=== PATIENT | male | born 1935 | race Caucasian/White ===

== ENCOUNTER 2017-01-03 20:43 | Observation (INO) | payer MEDICARE ==
[~2017-01-03] VITALS: Ht 177.8 cm; Wt 91.7 kg
[2017-01-03 21:11] LABS: HEMATOCRIT 42.1 % (42.0-52.0); HEMOGLOBIN 14.2 g/dl (13.5-18.0); MEAN CELL VOLUME 91 fl (80.0-100.0); MEAN CORPUSCULAR HEMOGLOBIN 31 pg (27.0-31.0); MEAN CORPUSCULAR HGB CONC 34 g/dl (33.0-37.0); MEAN PLATELET VOLUME 10.1 fl (7.4-10.4); PLATELET COUNT 251 K/mm3 (130-400); RED BLOOD COUNT 4.61 M/mm3 (4.20-5.60); REDCELL DISTRIBUTION WIDTH-CV 13.8 % (11.5-14.5); WHITE BLOOD COUNT 6.4 K/mm3 (4.8-10.8)
[2017-01-03] MEDS ORDERED: MILK OF MA400 MG/52 (21:17)
[2017-01-03] MEDS ORDERED: DULCOLAX S10 MG/SUPP RC (21:18)
[2017-01-03] MEDS ORDERED: ALMACONE 360 M360 ML PO (21:18)
[2017-01-03 21:20] LABS: ADJUSTED CALCIUM 9.2 mg/dL (8.4-10.2); ALANINE AMINOTRANSFERASE 16 U/L (21-72); ALBUMIN 3.9 gm/dL (3.5-5.0); ALKALINE PHOSPHATASE 56 U/L (50-136); ANION GAP 11 mmol/L (7-16); BLOOD UREA NITROGEN 20 mg/dL (9-20); CALCIUM 9.1 mg/dL (8.4-10.2); CARBON DIOXIDE 27 mmol/L (22-30); CHLORIDE 100 mmol/L (98-107); CREATININE, serum 0.81 mg/dL (0.66-1.25); GLUCOSE 106 mg/dL (74-106); LIPASE 59 U/L (23-300); POTASSIUM 3.9 mmol/L (3.4-5.0); SODIUM 138 mmol/L (137-145); TOTAL PROTEIN 7.2 gm/dL (6.4-8.2)
[2017-01-03] MEDS ORDERED: TYLENOL SU650 MG/SUP RC (21:20)
[2017-01-03] MEDS ORDERED: TYLENOL 325MG325 MG PO (21:20)
[2017-01-03 21:21] LABS: ADD PATHOLOGY DIFF REVIEW NO
[2017-01-03] MEDS ORDERED: NORCO 325 MG-7.1 TAB PO ×2 (21:21→22:48)
[2017-01-03] MEDS ORDERED: IMODIUM 2MG CAPS2 MG PO (21:21)
[2017-01-03] MEDS ORDERED: NEURONTIN800 MG/TAB PO (21:23)
[2017-01-03] MEDS ORDERED: RYTARY1 CER PO (21:24)
[2017-01-03] MEDS ORDERED: SINEMET 25/101 UDTAB PO (21:26)
[2017-01-03 21:32] LABS: B-TYPE NATRIURETIC PEPTIDE 472 pg/mL (0-450); TROPONIN-I < 0.012 ng/mL (0.000-0.034)
[2017-01-03 21:33] LABS: BASOPHIL 1 % (0-2); EOSINOPHIL 6 % (0-4); NEUTROPHILS 64 % (42.0-75.2); POIKILOCYTOSIS 1+; TOTAL CELLS COUNTED 100
[2017-01-03 21:34] LABS: ANISOCYTOSIS 1+
[2017-01-03] MEDS ORDERED: PROAMATINE2.5 MG PO ×2 (22:04→22:46)
[2017-01-03] MEDS ORDERED: ARICEPT10 MG PO (22:04)
[2017-01-03] MEDS ORDERED: FLORINEF ACETA0.1 MG PO (22:04)
[2017-01-03] MEDS ORDERED: FLOMAX 0.40.4 MG/CAP PO (22:05)
[2017-01-03] MEDS ORDERED: NATURE'S BLEND100 M2 PO (22:05)
[2017-01-03] MEDS ORDERED: VITAMIN B-1000 MCG/T PO (22:06)
[2017-01-03] MEDS ORDERED: ASPIRIN 32325 MG/TAB PO (22:47)
[2017-01-03] MEDS ORDERED: MIRALAX PA17 GM/Dose PO (22:47)
[2017-01-03] MEDS ORDERED: PEPCID40 MG PO (22:48)
[2017-01-03] MEDS ORDERED: SEROQUEL 2525 MG/TAB PO (22:49)
[2017-01-03] MEDS ORDERED: CIPRO 500MG TA500 MG PO (22:49)
[2017-01-03] MEDS ORDERED: AMBIEN 10MG10 MG PO (22:50)
[2017-01-03 23:56] VITALS: BP 169/85; PULSE 66; TEMP 97.9
[2017-01-04] VITALS (12 sets, daily range): BP systolic 82–193; BP diastolic 49–93; PULSE 63–87; TEMP 97.2–99
[2017-01-04] MEDS ORDERED: ARTIFICIAL TEAR15 M7 OP (00:23)
[2017-01-05 00:15] VITALS: BP 157/95; PULSE 53; TEMP 98.2
[2017-01-05 03:39] VITALS: BP 161/84; PULSE 69; TEMP 98.3
[2017-01-05 07:24] VITALS: BP 192/67; PULSE 63; TEMP 98.7
[2017-01-05] MEDS ORDERED: TOPROL XL 25MG25 MG PO (09:06)
[2017-01-05] MEDS ORDERED: ZESTRIL 10MG10 MG PO (09:06)
[2017-01-05 11:09] VITALS: BP 98/48; PULSE 57; TEMP 98.6
[2017-01-05 12:55] VITALS: BP 98/48; PULSE 57; TEMP 98.6
[2017-02-15] MEDS ORDERED: CIPRO 500MG TA500 MG PO (11:08)
[2017-02-15] MEDS ORDERED: COLACE 100100 MG/CAP PO (11:09)
[2017-02-15] MEDS ORDERED: SEROQUEL 2525 MG/TAB PO (11:16)
[2017-02-15] MEDS ORDERED: RYTARY1 CER PO ×2 (11:17→11:18)
[2017-02-15] MEDS ORDERED: FLOMAX 0.40.4 MG/CAP PO (11:18)
[2017-02-15] MEDS ORDERED: NATURE'S BLEND100 M2 PO (11:19)
[2017-02-15] MEDS ORDERED: NORCO 325 MG-7.1 TAB PO (12:31)
[2017-02-15] MEDS ORDERED: ALMACONE 360 M360 ML PO (12:35)
[2017-02-18] MEDS ORDERED: TRILEPTAL 300M300 MG PO (10:04)
[2017-02-18] MEDS ORDERED: SINEMET 25/101 UDTAB PO (10:05)
== END 2017-01-05 14:30 ==
LOC: COL.ER 20:43 → MEDICAL 22:33
PROVIDERS: Emergency Medicine
DX: R07.9 Chest pain, unspecified (principal); I16.0 Hypertensive urgency; R10.11 Right upper quadrant pain; E11.9 Type 2 diabetes mellitus without complications
CPT/HCPCS: 99233-AI; 99239; A9502; G0378; J1650; J2270; J2785

== ENCOUNTER → 2017-01-08 | Outpatient (CLI) | payer MEDICARE ==
[~2017-01-08] MED LIST: ALMACONE 360 M360 ML PO; AMBIEN 10MG10 MG PO; ARICEPT10 MG PO; ARTIFICIAL TEAR15 M7 OP; ASPIRIN 32325 MG/TAB PO; CIPRO 500MG TA500 MG PO; COLACE 100100 MG/CAP PO; DULCOLAX S10 MG/SUPP RC; FLOMAX 0.40.4 MG/CAP PO; FLORINEF ACETA0.1 MG PO; IMODIUM 2MG CAPS2 MG PO; MILK OF MA400 MG/52; MIRALAX PA17 GM/Dose PO; MYCOSTATIN100000 U/1 TP; NATURE'S BLEND100 M2 PO; NEURONTIN800 MG/TAB PO; NORCO 325 MG-7.1 TAB PO; PEPCID40 MG PO; PROAMATINE2.5 MG PO; RYTARY1 CER PO; SEROQUEL 2525 MG/TAB PO; SINEMET 25/101 UDTAB PO; TOPROL XL 25MG25 MG PO; TRILEPTAL 300M300 MG PO; TYLENOL 325MG325 MG PO; TYLENOL SU650 MG/SUP RC; VITAMIN B-1000 MCG/T PO; ZESTRIL 10MG10 MG PO
[2017-01-08 15:21] LABS: BASO % 0.6 % (0.0-2.0); EOS # 0.1 (0.0-0.7); EOS % 1.4 % (0-4.0); GRAN # 5.1 (1.4-6.5); GRAN % 72.9 % (42.2-75.2); HEMATOCRIT 42.1 % (42.0-52.0); HEMOGLOBIN 13.8 g/dl (13.5-18.0); LYMPH # 1.1 (1.2-3.4); LYMPH % 15.5 % (20.0-51.0); MEAN CELL VOLUME 95 fl (80.0-100.0); MEAN CORPUSCULAR HEMOGLOBIN 31 pg (27.0-31.0); MEAN CORPUSCULAR HGB CONC 33 g/dl (33.0-37.0); MEAN PLATELET VOLUME 11.5 fl (7.4-10.4); MONO # 0.6 (0.1-0.6); MONO % 9.2 % (1.7-9.3); PLATELET COUNT 253 K/mm3 (130-400); RED BLOOD COUNT 4.45 M/mm3 (4.20-5.60); REDCELL DISTRIBUTION WIDTH-CV 13.9 % (11.5-14.5)
[2017-01-08 15:34] LABS: PH 6 (5-8); SQUAMOUS EPITHELIAL 0-2 /hpf; URINE APPEARANCE Clear; URINE BACTERIA None Seen /hpf; URINE BILIRUBIN Negative (NEGATIVE); URINE BLOOD Negative (NEGATIVE); URINE COLOR Yellow; URINE GLUCOSE Negative (NEGATIVE); URINE KETONE Trace (NEGATIVE); URINE RBC 0-2 /hpf; URINE UROBILINOGEN Negative (NEGATIVE); URINE WBC 0-2 /hpf
[2017-01-08 15:44] LABS: ADJUSTED CALCIUM 9.6 mg/dL (8.4-10.2); ALANINE AMINOTRANSFERASE 15 U/L (21-72); ALBUMIN 3.7 gm/dL (3.5-5.0); ALKALINE PHOSPHATASE 49 U/L (50-136); ANION GAP 10 mmol/L (7-16); BILIRUBIN,TOTAL 1.4 mg/dL (0.0-1.0); BLOOD UREA NITROGEN 17 mg/dL (9-20); CALCIUM 9.4 mg/dL (8.4-10.2); CARBON DIOXIDE 28 mmol/L (22-30); CHLORIDE 101 mmol/L (98-107); CREATININE, serum 0.86 mg/dL (0.66-1.25); GLUCOSE 95 mg/dL (74-106); POTASSIUM 4.1 mmol/L (3.4-5.0); SODIUM 138 mmol/L (137-145); TOTAL PROTEIN 7.1 gm/dL (6.4-8.2)
[2017-01-08 15:55] LABS: TROPONIN-I < 0.012 ng/mL (0.000-0.034)
== END ==
LOC: ZCOL.LAB 14:59
PROVIDERS: Internal Medicine
DX: R41.82 Altered mental status, unspecified (principal); R07.9 Chest pain, unspecified

== ENCOUNTER 2017-01-09 02:36 | Emergency (ER) | payer MEDICARE ==
[~2017-01-09] VITALS: Ht 177.8 cm; Wt 90.9 kg
[~2017-01-09 02:36] MED LIST changes: -COLACE 100100 MG/CAP PO; -MYCOSTATIN100000 U/1 TP; -TRILEPTAL 300M300 MG PO
[2017-01-09 02:41] VITALS: TEMP 98.5
[2017-01-09] MEDS ORDERED: MYCOSTATIN100000 U/1 TP (03:15)
[2017-01-09 03:34] LABS: BASO # 0.1 (0.0-0.2); BASO % 0.6 % (0.0-2.0); EOS # 0.1 (0.0-0.7); EOS % 1.2 % (0-4.0); GRAN # 8.3 (1.4-6.5); GRAN % 79.3 % (42.2-75.2); HEMATOCRIT 41.9 % (42.0-52.0); HEMOGLOBIN 14.1 g/dl (13.5-18.0); LYMPH # 1.2 (1.2-3.4); LYMPH % 11.2 % (20.0-51.0); MEAN CELL VOLUME 92 fl (80.0-100.0); MEAN CORPUSCULAR HEMOGLOBIN 31 pg (27.0-31.0); MEAN CORPUSCULAR HGB CONC 34 g/dl (33.0-37.0); MONO # 0.8 (0.1-0.6); MONO % 7.3 % (1.7-9.3); PLATELET COUNT 283 K/mm3 (130-400); RED BLOOD COUNT 4.54 M/mm3 (4.20-5.60); REDCELL DISTRIBUTION WIDTH-CV 13.4 % (11.5-14.5); WHITE BLOOD COUNT 10.5 K/mm3 (4.8-10.8)
[2017-01-09 03:42] LABS: PH 7 (5-8); SQUAMOUS EPITHELIAL None Seen /hpf; URINE APPEARANCE Clear; URINE BACTERIA None Seen /hpf; URINE BILIRUBIN Negative (NEGATIVE); URINE BLOOD Negative (NEGATIVE); URINE COLOR Yellow; URINE GLUCOSE Negative (NEGATIVE); URINE KETONE Trace (NEGATIVE); URINE RBC 0-2 /hpf; URINE UROBILINOGEN Negative (NEGATIVE); URINE WBC 0-2 /hpf
[2017-01-09 03:45] LABS: ADJUSTED CALCIUM 9.5 mg/dL (8.4-10.2); ALANINE AMINOTRANSFERASE 17 U/L (21-72); ALBUMIN 3.6 gm/dL (3.5-5.0); ALKALINE PHOSPHATASE 53 U/L (50-136); ANION GAP 10 mmol/L (7-16); BILIRUBIN,TOTAL 1.4 mg/dL (0.0-1.0); BLOOD UREA NITROGEN 14 mg/dL (9-20); CALCIUM 9.2 mg/dL (8.4-10.2); CARBON DIOXIDE 29 mmol/L (22-30); CHLORIDE 102 mmol/L (98-107); CREATININE, serum 0.79 mg/dL (0.66-1.25); GLUCOSE 95 mg/dL (74-106); POTASSIUM 3.5 mmol/L (3.4-5.0); SODIUM 141 mmol/L (137-145); TOTAL PROTEIN 6.8 gm/dL (6.4-8.2)
[2017-01-09 03:56] LABS: B-TYPE NATRIURETIC PEPTIDE 709 pg/mL (0-450)
[2017-01-09 03:57] LABS: TROPONIN-I < 0.012 ng/mL (0.000-0.034)
[2017-01-09 07:13] VITALS: BP 134/84; PULSE 60
[2017-02-15] MEDS ORDERED: CIPRO 500MG TA500 MG PO (11:08)
[2017-02-15] MEDS ORDERED: COLACE 100100 MG/CAP PO (11:09)
[2017-02-15] MEDS ORDERED: SEROQUEL 2525 MG/TAB PO (11:16)
[2017-02-15] MEDS ORDERED: RYTARY1 CER PO ×2 (11:17→11:18)
[2017-02-15] MEDS ORDERED: FLOMAX 0.40.4 MG/CAP PO (11:18)
[2017-02-15] MEDS ORDERED: NATURE'S BLEND100 M2 PO (11:19)
[2017-02-15] MEDS ORDERED: NORCO 325 MG-7.1 TAB PO (12:31)
[2017-02-15] MEDS ORDERED: ALMACONE 360 M360 ML PO (12:35)
[2017-02-18] MEDS ORDERED: TRILEPTAL 300M300 MG PO (10:04)
[2017-02-18] MEDS ORDERED: SINEMET 25/101 UDTAB PO (10:05)
== END 2017-01-09 07:13 | disposition home or self-care (01) ==
LOC: COL.ER 02:36
PROVIDERS: Emergency Medicine
DX: R41.82 Altered mental status, unspecified (principal); G20 Parkinson's disease; F02.80 Dementia in other diseases classified elsewhere, unspecified severity, without behavioral disturbance, psychotic disturbance, mood disturbance, and anxiety; I10 Essential (primary) hypertension; E11.9 Type 2 diabetes mellitus without complications; Z79.82 Long term (current) use of aspirin; Z90.49 Acquired absence of other specified parts of digestive tract; Z89.111 Acquired absence of right hand
CPT/HCPCS: J7040

== ENCOUNTER → 2017-03-13 | Outpatient (REF) ==
[~2017-03-13] MED LIST changes: +COLACE 100100 MG/CAP PO; +MYCOSTATIN100000 U/1 TP; +TRILEPTAL 300M300 MG PO
[2017-03-13 14:05] LABS: BASO % 0.5 % (0.0-2.0); EOS # 0.1 (0.0-0.7); EOS % 1.1 % (0-4.0); GRAN # 6.3 (1.4-6.5); GRAN % 73.4 % (42.2-75.2); HEMATOCRIT 47.1 % (42.0-52.0); HEMOGLOBIN 15.6 g/dl (13.5-18.0); LYMPH # 1.2 (1.2-3.4); LYMPH % 13.8 % (20.0-51.0); MEAN CELL VOLUME 94 fl (80.0-100.0); MEAN CORPUSCULAR HEMOGLOBIN 31 pg (27.0-31.0); MEAN CORPUSCULAR HGB CONC 33 g/dl (33.0-37.0); MEAN PLATELET VOLUME 11.9 fl (7.4-10.4); MONO # 0.9 (0.1-0.6); MONO % 10.8 % (1.7-9.3); PH 5 (5-8); PLATELET COUNT 221 K/mm3 (130-400); RED BLOOD COUNT 5.03 M/mm3 (4.20-5.60); REDCELL DISTRIBUTION WIDTH-CV 13.2 % (11.5-14.5); SQUAMOUS EPITHELIAL 0-2 /hpf; URINE APPEARANCE Clear; URINE BACTERIA None Seen /hpf; URINE BILIRUBIN Negative (NEGATIVE); URINE BLOOD Negative (NEGATIVE); URINE COLOR Yellow; URINE GLUCOSE Negative (NEGATIVE); URINE KETONE Negative (NEGATIVE); URINE RBC 0-2 /hpf; URINE UROBILINOGEN Negative (NEGATIVE); URINE WBC 0-2 /hpf; WHITE BLOOD COUNT 8.5 K/mm3 (4.8-10.8)
[2017-03-13 14:28] LABS: ADJUSTED CALCIUM 9.8 mg/dL (8.4-10.2); ALBUMIN 3.8 gm/dL (3.5-5.0); BILIRUBIN,TOTAL 1.3 mg/dL (0.0-1.0); CALCIUM 9.6 mg/dL (8.4-10.2); CREATININE, serum 0.79 mg/dL (0.66-1.25); TOTAL PROTEIN 6.7 gm/dL (6.4-8.2)
== END ==
LOC: ZCOL.LAB 13:53
PROVIDERS: Internal Medicine
DX: E87.6 Hypokalemia (principal); N39.0 Urinary tract infection, site not specified

== ENCOUNTER 2019-03-15 11:53 | Emergency (ER) | payer MEDICARE, MEDICAID ==
[~2019-03-15] VITALS: Ht 180.3 cm; Wt 90.9 kg
[2019-03-15 11:55] VITALS: TEMP 97.7
[2019-03-15] MEDS ORDERED: ARICEPT10 MG PO (16:11)
[2019-03-15] MEDS ORDERED: LIQUIFILM TEARS15 ML OU (16:12)
[2019-03-15 16:30] VITALS: BP 192/102; PULSE 81
[2019-03-15] MEDS ORDERED: MUCINEX 60600 MG/TA1 PO (16:43)
[2019-03-15] MEDS ORDERED: SINEMET 25/101 UDTAB PO (16:45)
[2019-03-15] MEDS ORDERED: ZOFRAN 4MG T4 MG/TAB PO (16:49)
== END 2019-03-15 16:30 | disposition short-term general hospital (02) ==
LOC: COL.ER 11:53
DX: S12.500A Unspecified displaced fracture of sixth cervical vertebra, initial encounter for closed fracture (principal); S01.21XA Laceration without foreign body of nose, initial encounter; G20 Parkinson's disease; E11.9 Type 2 diabetes mellitus without complications; F03.90 Unspecified dementia, unspecified severity, without behavioral disturbance, psychotic disturbance, mood disturbance, and anxiety; I10 Essential (primary) hypertension; Z79.82 Long term (current) use of aspirin; Z79.84 Long term (current) use of oral hypoglycemic drugs; W01.0XXA Fall on same level from slipping, tripping and stumbling without subsequent striking against object, initial encounter; Y92.009 Unspecified place in unspecified non-institutional (private) residence as the place of occurrence of the external cause
CPT/HCPCS: J2405; J3010; J7030

== ENCOUNTER → 2019-04-22 | Outpatient (CLI) | payer MEDICARE, MEDICAID ==
[~2019-04-22] MED LIST changes: +LIQUIFILM TEARS15 ML OU; +MUCINEX 60600 MG/TA1 PO; +ZOFRAN 4MG T4 MG/TAB PO
[2019-04-22 10:13] LABS: HEMATOCRIT 40.9 % (42.0-52.0); HEMOGLOBIN 13.3 g/dl (13.5-18.0); MEAN CELL VOLUME 90 fl (80.0-100.0); MEAN CORPUSCULAR HEMOGLOBIN 29 pg (27.0-31.0); MEAN CORPUSCULAR HGB CONC 33 g/dl (33.0-37.0); MEAN PLATELET VOLUME 12.5 fl (7.4-10.4); PLATELET COUNT 142 K/mm3 (130-400); RED BLOOD COUNT 4.53 M/mm3 (4.20-5.60); REDCELL DISTRIBUTION WIDTH-CV 13.3 % (11.5-14.5)
[2019-04-22 13:24] LABS: BAND 14 % (0-10); LYMPHOCYTE 53 % (20.0-51.0); NEUTROPHILS 23 % (42.0-75.2)
[2019-04-22 13:25] LABS: PLATELET ESTIMATE NORMAL (NORMAL)
== END ==
LOC: ZCOL.LAB 09:51
PROVIDERS: Family Medicine
DX: E11.59 Type 2 diabetes mellitus with other circulatory complications (principal); N39.0 Urinary tract infection, site not specified

== ENCOUNTER → 2019-11-07 | Outpatient (CLI) | payer MEDICARE, MEDICAID ==
[2019-11-07 14:40] LABS: BASO % 0.6 % (0.0-2.0); EOS # 0.1 (0.0-0.7); EOS % 1.7 % (0-4.0); GRAN # 3.5 (1.4-6.5); GRAN % 68.5 % (42.2-75.2); HEMATOCRIT 42.2 % (42.0-52.0); HEMOGLOBIN 13.5 g/dl (13.5-18.0); LYMPH # 0.9 (1.2-3.4); LYMPH % 17.6 % (20.0-51.0); MEAN CELL VOLUME 94 fl (80.0-100.0); MEAN CORPUSCULAR HEMOGLOBIN 30 pg (27.0-31.0); MEAN CORPUSCULAR HGB CONC 32 g/dl (33.0-37.0); MONO # 0.6 (0.1-0.6); MONO % 11.2 % (1.7-9.3); PLATELET COUNT 114 K/mm3 (130-400); REDCELL DISTRIBUTION WIDTH-CV 13.6 % (11.5-14.5)
[2019-11-07 14:44] LABS: ALANINE AMINOTRANSFERASE 8 U/L (4-49); ALBUMIN 3.6 gm/dL (3.5-5.0); ALKALINE PHOSPHATASE 57 U/L (50-136); ANION GAP 8 mmol/L (7-16); AST,SGOT 13 U/L (15-37); BLOOD UREA NITROGEN 23 mg/dL (9-20); CALCIUM 8.9 mg/dL (8.4-10.2); CARBON DIOXIDE 27 mmol/L (22-30); CHLORIDE 102 mmol/L (98-107); CREATININE, serum 1.15 (0.66-1.25); GLUCOSE 148 mg/dL (74-106); POTASSIUM 3.8 mmol/L (3.4-5.0); SODIUM 136 mmol/L (137-145); TOTAL PROTEIN 6.6 gm/dL (6.4-8.2)
[2019-11-07 14:57] LABS: TROPONIN-I < 0.012 ng/mL (0.000-0.035)
== END ==
LOC: ZCOL.LAB 14:34
PROVIDERS: Internal Medicine
DX: R00.1 Bradycardia, unspecified (principal); R55 Syncope and collapse

== ENCOUNTER → 2021-05-16 | Outpatient (CLI) | payer MEDICARE, MEDICAID ==
[2021-05-16 18:19] LABS: ALANINE AMINOTRANSFERASE < 6 U/L (0-55); ALBUMIN 2.8 gm/dL (3.4-4.8); ALKALINE PHOSPHATASE 48 U/L (40-150); ANION GAP 8 mmol/L (7-16); AST,SGOT 7 U/L (5-34); BILIRUBIN,TOTAL 0.6 mg/dL (0.2-1.2); BLOOD UREA NITROGEN 20 mg/dL (8-26); CALCIUM 9.5 mg/dL (8.4-10.2); CARBON DIOXIDE 32 mmol/L (23-31); CHLORIDE 105 mmol/L (98-107); CREATININE, serum 0.76 mg/dL (0.72-1.25); GLUCOSE 86 mg/dL (70-99); SODIUM 145 mmol/L (136-145); TOTAL PROTEIN 6.4 gm/dL (6.2-8.1)
[2021-05-16 18:20] LABS: BASO % 0.4 % (0.0-2.0); EOS # 0.3 K/mm3 (0.0-0.7); EOS % 5.1 % (0-4.0); GRAN # 3.1 K/mm3 (1.4-6.5); GRAN % 62.4 % (42.2-75.2); HEMOGLOBIN 10.6 g/dl (13.5-18.0); LYMPH % 19.7 % (20.0-51.0); MEAN CELL VOLUME 95 fl (80.0-100.0); MEAN CORPUSCULAR HEMOGLOBIN 29 pg (27.0-31.0); MEAN CORPUSCULAR HGB CONC 31 g/dl (33.0-37.0); MONO # 0.6 K/mm3 (0.1-0.6); MONO % 12.2 % (1.7-9.3); PLATELET COUNT 197 K/mm3 (130-400); REDCELL DISTRIBUTION WIDTH-CV 13.6 % (11.5-14.5)
[2021-05-16 18:23] LABS: HEMATOCRIT 34.2 % (42.0-52.0)
== END ==
LOC: ZCOL.LAB 18:01
PROVIDERS: Internal Medicine
DX: F22 Delusional disorders (principal)